=== PATIENT | male | born 1955 | race American Indian/Alaskan Native ===

== ENCOUNTER 2016-12-22 11:04 | Emergency (ER) | payer OTHER ==
[2016-12-22 11:20] VITALS: BP 141/91
--- NOTE | 2016-12-22 13:22 | Emergency Department Report ---
ED Neck Pain/Injury HPI - General Chief Complaint: Neck Pain/Injury Stated Complaint: NECK/SHOULDER PAIN Time Seen by Provider: 12/22/16 12:51 Mode of arrival: Ambulatory Limitations: No Limitations - History of Present Illness Initial Comments: Patient comes into the ER today with complaints of neck pain and upper chest discomfort for the past 2-3 weeks. Patient states that symptoms started with an upper respiratory infection. Patient was started on amoxicillin 500 mg 3 times a day, Singulair, Flonase, Claritin by his doctor. Patient states that he feels like he is no longer congested but he continues to have some episodes of chills, fevers, neck pain. Patient denies any injury. Patient states that the pain he describes feels like a burning sensation and is worse when he raises his arms especially over his head. Patient states that the neck pain it seems to radiate into both upper arms. Patient describes the neck pain as a tight sensation. Patient denies any chest pain or shortness of breath. MD Complaint: neck pain - Related Data Home Medications Medication Instructions Recorded Confirmed Last Taken Allopurinol 100 mg PO DAILY 12/15/13 05/03/16 12/17/13 Insulin Aspart [NovoLOG 100 4 unit SQ QAM 12/15/13 05/03/16 12/17/13 08:00 UNITS/ML VIAL] Linagliptin [Tradjenta] 5 mg PO DAILY 12/15/13 05/03/16 12/17/13 Lisinopril/Hydrochlorothiazide 1 tab PO DAILY 12/15/13 05/03/16 12/18/13 04:00 [Zestoretic 20-12.5 mg] Simvastatin 20 mg PO DAILY 12/15/13 05/03/16 12/17/13 amLODIPine [Norvasc] 5 mg PO DAILY 12/15/13 05/03/16 12/18/13 04:00 glipiZIDE [Glipizide] 10 mg PO BID 12/15/13 05/03/16 12/17/13 Previous Rx's Medication Instructions Recorded Last Taken Type Benzonatate [Tessalon Perles] 100 mg PO Q8HR PRN #30 capsule 05/03/16 Unknown Rx Ibuprofen [Motrin 800 MG tab] 800 mg PO Q8HR PRN #30 tablet 05/03/16 Unknown Rx traMADol [Ultram 50 MG tab] 50 mg PO Q6HR PRN #20 tablet 05/03/16 Unknown Rx Cyclobenzaprine HCl [Flexeril 5 MG 5 mg PO TID PRN #20 tab 12/22/16 Unknown Rx TAB] Levofloxacin [Levaquin TAB] 500 mg PO QDAY #10 tablet 12/22/16 Unknown Rx Naproxen [Naprosyn TAB] 500 mg PO BID #20 tablet 12/22/16 Unknown Rx traMADol [Ultram 50 MG tab] 50 mg PO Q4HR PRN #20 tablet 12/22/16 Unknown Rx Allergies Allergy/AdvReac Type Severity Reaction Status Date / Time amlodipine Allergy Rash Verified 12/22/16 11:24 ED Review of Systems ROS: Stated complaint: NECK/SHOULDER PAIN Other details as noted in HPI Constitutional: chills, fever Eyes: denies: eye pain, eye discharge, vision change ENT: ear pain. denies: throat pain, epistaxis, congestion Respiratory: denies: cough, shortness of breath, SOB with exertion, SOB at rest , wheezing Cardiovascular: denies: chest pain, palpitations, dyspnea on exertion, edema, syncope Endocrine: no symptoms reported Gastrointestinal: denies: abdominal pain, nausea, diarrhea Genitourinary: denies: urgency, dysuria Musculoskeletal: myalgia (bilateral shoulders and neck). denies: back pain, joint swelling, arthralgia Skin: denies: rash, lesions Neurological: headache. denies: weakness, numbness, paresthesias Psychiatric: denies: anxiety, depression Hematological/Lymphatic: denies: easy bleeding, easy bruising ED Past Medical Hx - Past Medical History Previous Medical History?: Yes Hx Hypertension: Yes (hypercholesterolemia) Hx Diabetes: Yes (6YRS TAKES PILL/USING INSULIN ONLY FOR 1 WK ,GOUT MED. CAUSED HYPERGLYCEMIA) Hx GERD: Yes Hx Renal Disease: No - Surgical History Past Surgical History?: Yes Hx Cholecystectomy: Yes - Social History Smoking Status: Never Smoker Substance Use Type: None - Medications Home Medications: Home Medications Medication Instructions Recorded Confirmed Last Taken Type Allopurinol 100 mg PO DAILY 12/15/13 05/03/16 12/17/13 History Insulin Aspart [NovoLOG 100 4 unit SQ QAM 12/15/13 05/03/16 12/17/13 08:00 History UNITS/ML VIAL] Linagliptin [Tradjenta] 5 mg PO DAILY 12/15/13 05/03/16 12/17/13 History Lisinopril/Hydrochlorothiazide 1 tab PO DAILY 12/15/13 05/03/16 12/18/13 04:00 History [Zestoretic 20-12.5 mg] Simvastatin 20 mg PO DAILY 12/15/13 05/03/16 12/17/13 History amLODIPine [Norvasc] 5 mg PO DAILY 12/15/13 05/03/16 12/18/13 04:00 History glipiZIDE [Glipizide] 10 mg PO BID 12/15/13 05/03/16 12/17/13 History Benzonatate [Tessalon Perles] 100 mg PO Q8HR PRN #30 capsule 05/03/16 Unknown Rx Ibuprofen [Motrin 800 MG tab] 800 mg PO Q8HR PRN #30 tablet 05/03/16 Unknown Rx traMADol [Ultram 50 MG tab] 50 mg PO Q6HR PRN #20 tablet 05/03/16 Unknown Rx Cyclobenzaprine HCl [Flexeril 5 MG 5 mg PO TID PRN #20 tab 12/22/16 Unknown Rx TAB] Levofloxacin [Levaquin TAB] 500 mg PO QDAY #10 tablet 12/22/16 Unknown Rx Naproxen [Naprosyn TAB] 500 mg PO BID #20 tablet 12/22/16 Unknown Rx traMADol [Ultram 50 MG tab] 50 mg PO Q4HR PRN #20 tablet 12/22/16 Unknown Rx ED Physical Exam - General Limitations: No Limitations General appearance: alert, in no apparent distress - Head Head exam: Present: atraumatic, normocephalic - Eye Eye exam: Present: normal appearance, PERRL, EOMI. Absent: periorbital swelling , periorbital tenderness Pupils: Present: normal accommodation - ENT ENT exam: Present: normal orophraynx, mucous membranes moist, normal external ear exam, other (mild bilateral air-fluid levels noted behind the TMs, bilateral nasal mucosa redness without congestion) - Neck Neck exam: Present: normal inspection, tenderness (bilateral posterior muscle tenderness with right sided muscle mass swelling consistent with spasm.), other (a carotid bruit noted). Absent: full ROM, lymphadenopathy, thyromegaly - Respiratory Respiratory exam: Present: normal lung sounds bilaterally. Absent: respiratory distress, wheezes, rales, rhonchi, decreased breath sounds - Cardiovascular Cardiovascular Exam: Present: regular rate, normal rhythm. Absent: systolic murmur, diastolic murmur, rubs, gallop - GI/Abdominal GI/Abdominal exam: Present: soft, normal bowel sounds. Absent: tenderness - Rectal Rectal exam: Present: deferred - Extremities Exam Extremities exam: Present: normal inspection, tenderness (bilateral posterior shoulder and parascapular muscle tenderness), normal capillary refill. Absent: full ROM (limited bilateral shoulder abduction secondary to pain in shoulders and neck), pedal edema - Back Exam Back exam: Present: normal inspection, tenderness (tenderness to upper parascapular region with muscle tightness noted). Absent: CVA tenderness (R) - Neurological Exam Neurological exam: Present: alert, oriented X3, CN II-XII intact, normal gait - Psychiatric Psychiatric exam: Present: normal affect, normal mood - Skin Skin exam: Present: warm, dry, intact, normal color. Absent: rash ED Course Vital Signs 12/22/16 11:13 Temperature 98.1 F Pulse Rate 98 H Respiratory 18 Rate Blood Pressure 141/91 O2 Sat by Pulse 100 Oximetry ED Medical Decision Making - Radiology Data Radiology results: report reviewed, image reviewed interpreted by me: X-ray of C-spine reveals multilevel degenerative changes with increased degenerative changes at C5-C6. No acute pathology noted. On chest x-ray concerning for potential left lingular infiltrate - Medical Decision Making Patient is nontoxic and hemodynamically stable. Examination of patient's neck pain is more concerning for muscular etiology with potential nerve impingement based on symptoms. X-ray of neck and x-ray of chest ordered and reviewed results with patient in room. I'll start patient on some muscle relaxers, anti- inflammatories, pain medications as well as antibiotics appropriately. I have encouraged patient follow-up with his primary care doctor to ensure resolution of symptoms. Patient also seen doctors at [facility] for his lower back and I have encouraged him to mention his neck and have them look in his neck as well. The patient is in agreement with treatment plan patient stable for discharge. Critical care attestation.: If time is entered above; I have spent that time in minutes in the direct care of this critically ill patient, excluding procedure time. ED Disposition Clinical Impression: Neck pain, Degenerative disc disease, cervical, Pneumonia Disposition: - TO HOME OR SELFCARE Is pt being admited?: No Does the pt Need Aspirin: No Condition: Good Instructions: Community-acquired Pneumonia (ED), Degenerative Disc Disease (ED) , Muscle Spasm (ED) Prescriptions: Cyclobenzaprine HCl [Flexeril 5 MG TAB] 5 mg PO TID PRN #20 tab PRN Reason: Muscle Spasm Levofloxacin [Levaquin TAB] 500 mg PO QDAY #10 tablet Naproxen [Naprosyn TAB] 500 mg PO BID #20 tablet traMADol [Ultram 50 MG tab] 50 mg PO Q4HR PRN #20 tablet PRN Reason: Pain Referrals: PRIMARY CARE,MD [Primary Care Provider] - 3-5 Days spine doctor, your [Other] - 3-5 Days Time of Disposition: 14:47
--- NOTE | 2016-12-22 14:03 | XRay Report ---
CHEST 2 VIEWS INDICATION: Upper chest pain, fever. COMPARISON: 05/03/2016. FINDINGS: PA and lateral chest radiographs demonstrate normal cardiomediastinal silhouette. Clear lungs. Stable demineralized bones with mild degenerative changes. Probable cholecystectomy clips. CONCLUSION: No acute disease in the chest. Thank you for the opportunity to participate in this patient's care.
--- NOTE | 2016-12-22 14:42 | XRay Report ---
Cervical spine 3 views: History: Neck pain. Findings: Normal height of vertebral bodies. Marked decrease in height of C5-C6. Adjacent articular surfaces sclerotic with peripheral osteophytes suggestive of severe cervical spondylosis. Normal prevertebral soft tissue. No fracture. Impression: Severe spondylosis C5-C6.
== END 2016-12-22 14:56 | disposition home or self-care (01) ==
LOC: ED 11:04
DX: M50.30 Other cervical disc degeneration, unspecified cervical region (principal); J18.9 Pneumonia, unspecified organism; I10 Essential (primary) hypertension; E11.9 Type 2 diabetes mellitus without complications; K21.9 Gastro-esophageal reflux disease without esophagitis; Z79.4 Long term (current) use of insulin; Z88.8 Allergy status to other drugs, medicaments and biological substances
CPT/HCPCS: 71020; 72040; 99283

== ENCOUNTER 2017-01-07 10:13 | Emergency (ER) | payer OTHER ==
[2017-01-07 11:41] LABS: Bilirubin,Urine NEG (Negative); Blood,Urine NEG (Negative); Ketones,Urine NEG (Negative); Leukocyte Esterase,Urine NEG (Negative); Nitrite,Urine NEG (Negative); Urobilinogen,Urine < 2.0 mg/dL (<2.0); WBC,Urine < 1.0 /HPF (0.0-6.0)
[2017-01-07 11:42] LABS: Albumin 3.9 g/dL (3.9-5); Albumin/Globulin Ratio 1.1 %; Bilirubin,Total 0.5 mg/dL (0.1-1.2); Calcium 9.1 mg/dL (8.4-10.2); Chloride 104.3 mmol/L (98-107); Potassium 4.9 mmol/L (3.6-5.0); Total Protein 7.6 g/dL (6.3-8.2)
[2017-01-07 11:44] LABS: Basophils % (Auto) 0.5 % (0.0-1.8); Eosinophils % (Auto) 2.8 % (0.0-4.3); Hematocrit 36.2 % (35.5-45.6); Hemoglobin 11.7 gm/dl (11.8-15.2); Mean Corpuscular HGB Conc 32 % (32-34); Mean Corpuscular Hemoglobin 27 pg (28-32); Mean Corpuscular Volume 82 fl (84-94); Platelet Count 253 K/mm3 (140-440); Red Blood Count 4.42 M/mm3 (3.65-5.03); Red Cell Distribution Width 14.8 % (13.2-15.2)
[2017-01-07] MEDS ORDERED: TYLENOL PO ONE (22:07)
[2017-01-07 22:11] LABS: Creatine Kinase MB 3.1 ng/mL (0.0-4.0)
--- NOTE | 2017-01-07 22:12 | Emergency Department Report ---
HPI - General Chief Complaint: Weakness Time Seen by Provider: 01/07/17 21:49 - HPI HPI: Room 4 The patient is a 61-year-old male presenting with a chief complaint of body aches and cough. Patient states his symptoms began approximately 3 weeks ago with rhinorrhea and nasal congestion and ear pain in addition to a cough productive of brown sputum. Patient states he would see his primary physician 2 weeks ago and was started on amoxicillin and Claritin and nasal spray. He states his symptoms did not improve so he came to the emergency department 12/22 and was started on Levaquin. The patient states he has completed his course of medication but his symptoms have not improved. Patient states one night he became diaphoretic and the following day when he checked, his temperature was 98.7F. The patient states he has a burning discomfort when he takes a deep breath. Patient states he has had a cough productive of yellow sputum and he feels as though he has the flu. Patient complains of pain in the muscles of his neck and shoulders and legs and describes it as burning in nature. Patient denies having chest pain, pressure, tightness or heaviness. Patient denies chest discomfort. Patient denies shortness of breath Location: [see above] Duration: 3 weeks Quality: Burning Severity: Moderate Modifying factors: [see above] Context: [see above] Mode of transportation: The patient drove himself to the emergency department and there are no visitors present ED Past Medical Hx - Past Medical History Hx Hypertension: Yes (hypercholesterolemia) Hx Diabetes: Yes Hx GERD: Yes Additional medical history: GOUT - Surgical History Hx Cholecystectomy: Yes Additional Surgical History: HERNIA REPAIR - Family History Family history: no significant - Social History Smoking Status: Never Smoker Substance Use Type: Prescribed - Medications Home Medications: Home Medications Medication Instructions Recorded Confirmed Last Taken Type Allopurinol 100 mg PO DAILY 12/15/13 05/03/16 12/17/13 History Insulin Aspart [NovoLOG 100 4 unit SQ QAM 12/15/13 05/03/16 12/17/13 08:00 History UNITS/ML VIAL] Linagliptin [Tradjenta] 5 mg PO DAILY 12/15/13 05/03/16 12/17/13 History Lisinopril/Hydrochlorothiazide 1 tab PO DAILY 12/15/13 05/03/16 12/18/13 04:00 History [Zestoretic 20-12.5 mg] Simvastatin 20 mg PO DAILY 12/15/13 05/03/16 12/17/13 History amLODIPine [Norvasc] 5 mg PO DAILY 12/15/13 05/03/16 12/18/13 04:00 History glipiZIDE [Glipizide] 10 mg PO BID 12/15/13 05/03/16 12/17/13 History Benzonatate [Tessalon Perles] 100 mg PO Q8HR PRN #30 capsule 05/03/16 Unknown Rx Ibuprofen [Motrin 800 MG tab] 800 mg PO Q8HR PRN #30 tablet 05/03/16 Unknown Rx traMADol [Ultram 50 MG tab] 50 mg PO Q6HR PRN #20 tablet 05/03/16 Unknown Rx Cyclobenzaprine HCl [Flexeril 5 MG 5 mg PO TID PRN #20 tab 12/22/16 Unknown Rx TAB] Levofloxacin [Levaquin TAB] 500 mg PO QDAY #10 tablet 12/22/16 Unknown Rx Naproxen [Naprosyn TAB] 500 mg PO BID #20 tablet 12/22/16 Unknown Rx traMADol [Ultram 50 MG tab] 50 mg PO Q4HR PRN #20 tablet 12/22/16 Unknown Rx Cyclobenzaprine [Flexeril] 10 mg PO TID PRN #20 tablet 01/07/17 Unknown Rx Docusate Sodium [Colace] 100 mg PO BID #60 capsule 01/07/17 Unknown Rx HYDROcodone/APAP 5-325 [Canon 1 - 2 each PO Q6HR PRN #14 tablet 01/07/17 Unknown Rx 5/325] ED Review of Systems ROS: Stated complaint: MUSCLE PAIN/WEAK/NO ENERGY Other details as noted in HPI Comment: All other systems reviewed and negative Constitutional: diaphoresis, malaise. denies: fever Eyes: denies: eye pain, eye discharge, vision change ENT: ear pain Respiratory: cough. denies: shortness of breath Cardiovascular: denies: chest pain Endocrine: no symptoms reported Gastrointestinal: denies: abdominal pain, nausea, diarrhea Genitourinary: denies: urgency, dysuria Musculoskeletal: myalgia Skin: denies: rash, lesions Neurological: denies: headache, weakness, paresthesias Psychiatric: denies: anxiety, depression Hematological/Lymphatic: denies: easy bleeding, easy bruising Physical Exam - Physical Exam Vital Signs: Vital Signs 01/07/17 10:47 Temperature 98.5 F Pulse Rate 84 Respiratory 18 Rate Blood Pressure 134/88 O2 Sat by Pulse 100 Oximetry Physical Exam: GENERAL: The patient is well-developed well-nourished male lying on the stretcher not appearing to be in acute distress. [] HEENT: Normocephalic. Atraumatic. Extraocular motions are intact. Patient has moist mucous membranes. NECK: Supple. No meningitic signs are noted. Trachea midline CHEST/LUNGS: Clear to auscultation. There is no respiratory distress noted. HEART/CARDIOVASCULAR: Regular. There is no tachycardia. There is no gallop rub or murmur. ABDOMEN: Abdomen is soft, nontender. Patient has normal bowel sounds. There is no abdominal distention. SKIN: There is no rash. There is no edema. There is no diaphoresis. NEURO: The patient is awake, alert, and oriented. The patient is cooperative. The patient has normal speech MUSCULOSKELETAL: There is no evidence of acute injury. ED Course Vital Signs 01/07/17 10:47 Temperature 98.5 F Pulse Rate 84 Respiratory 18 Rate Blood Pressure 134/88 O2 Sat by Pulse 100 Oximetry ED Medical Decision Making - Lab Data Result diagrams: 01/07/17 11:09 01/07/17 11:09 Laboratory Tests 01/07/17 01/07/17 01/07/17 11:09 11:09 11:09 WBC 8.0 RBC 4.42 Hgb 11.7 L Hct 36.2 MCV 82 L MCH 27 L MCHC 32 RDW 14.8 Plt Count 253 Lymph % (Auto) 27.0 Cataño % (Auto) 8.4 H Eos % (Auto) 2.8 Baso % (Auto) 0.5 Lymph # 2.2 Cataño # 0.7 Eos # 0.2 Baso # 0.0 Seg Neutrophils % 61.3 Seg Neutrophils # 4.9 Sodium 140 Potassium 4.9 Chloride 104.3 Carbon Dioxide 26 Anion Gap 15 BUN 27 H Creatinine 1.5 Estimated GFR 57 BUN/Creatinine Ratio 18.00 Glucose 147 H Calcium 9.1 Total Bilirubin 0.50 AST 20 ALT 16 Alkaline Phosphatase 84 Total Creatine Kinase 182 H CK-MB (CK-2) 3.1 Troponin T 0.020 Total Protein 7.6 Albumin 3.9 Albumin/Globulin Ratio 1.1 TSH Free T4 Urine Color Urine Turbidity Urine pH Ur Specific Sandoval Urine Protein Urine Glucose (UA) Urine Ketones Urine Blood Urine Nitrite Urine Bilirubin Urine Urobilinogen Ur Leukocyte Esterase Urine WBC (Auto) Urine RBC (Auto) U Epithel Cells (Auto) 01/07/17 01/07/17 11:09 11:10 WBC RBC Hgb Hct MCV MCH MCHC RDW Plt Count Lymph % (Auto) Cataño % (Auto) Eos % (Auto) Baso % (Auto) Lymph # Cataño # Eos # Baso # Seg Neutrophils % Seg Neutrophils # Sodium Potassium Chloride Carbon Dioxide Anion Gap BUN Creatinine Estimated GFR BUN/Creatinine Ratio Glucose Calcium Total Bilirubin AST ALT Alkaline Phosphatase Total Creatine Kinase CK-MB (CK-2) Troponin T Total Protein Albumin Albumin/Globulin Ratio TSH 1.290 Free T4 1.15 Urine Color Yellow Urine Turbidity Clear Urine pH 7.0 Ur Specific Sandoval 1.016 Urine Protein 30 mg/dl Urine Glucose (UA) 150 Urine Ketones Neg Urine Blood Neg Urine Nitrite Neg Urine Bilirubin Neg Urine Urobilinogen < 2.0 Ur Leukocyte Esterase Neg Urine WBC (Auto) < 1.0 Urine RBC (Auto) 2.0 U Epithel Cells (Auto) < 1.0 Influenza negative - EKG Data -: EKG Interpreted by Me EKG shows normal: sinus rhythm Rate: normal - EKG Data When compared to previous EKG there are: no significant change Interpretation: unchanged when compared t (05/03/2016) - Radiology Data Radiology results: report reviewed (CT chest), image reviewed (CT chest) CT chest (read by radiologist)-no significant pulmonary abnormality. - Differential Diagnosis influenza, pneumonia, pleurisy, PE, dissection, rhabdomyolysis Critical care attestation.: If time is entered above; I have spent that time in minutes in the direct care of this critically ill patient, excluding procedure time. ED Disposition Clinical Impression: Proteinuria, Myalgia, Cough Disposition: - TO HOME OR SELFCARE Is pt being admited?: No Does the pt Need Aspirin: No Condition: Stable Instructions: Musculoskeletal Pain (ED) Additional Instructions: Return to the emergency department immediately should you develop worsening symptoms, fever, inability to tolerate food or liquid or any other concerns. Prescriptions: Cyclobenzaprine [Flexeril] 10 mg PO TID PRN #20 tablet PRN Reason: Muscle Spasm Docusate Sodium [Colace] 100 mg PO BID #60 capsule HYDROcodone/APAP 5-325 [Canon 5/325] 1 - 2 each PO Q6HR PRN #14 tablet PRN Reason: Pain Referrals: ELIF TRINH MD [Staff Physician] - 3-5 Days (Dr. Trinh is a print shop assistant. Please follow up with him for further evaluation of the protein in your urine) AYLA MELTON MD [Primary Care Provider] - 3-5 Days WAYNE ATKINSON MD [Staff Physician] - 3-5 Days (Dr. Atkinson is an orthopedic surgeon. Please follow with him for further evaluation of your neck and shoulder pain) HUGH ONEILL MD [Staff Physician] - 3-5 Days (Dr. Oneill is a bad credit collector. Please follow up with him for further evaluation) Time of Disposition: 23:29
--- NOTE | 2017-01-07 23:15 | Cat Scan Report ---
FINAL REPORT EXAM: CT ANGIO CHEST HISTORY: pleurisy, cough TECHNIQUE: CT imaging obtained through the chest following intravenous administration of contrast. Transaxial, Coronal and sagittal reformats with maximal intensity projections are provided. PRIORS: None. FINDINGS: Mediastinum is unremarkable. Normal caliber main pulmonary artery. No central or segmental pulmonary embolism. Coronary artery disease is present. Thoracic aorta is normal in course and caliber. No pneumothorax, effusion or focal airspace disease. Basilar atelectasis/scarring. The central airways are patent. No bronchiectasis. Imaged portion of the upper abdomen is remarkable for cholecystectomy and right and left renal cyst measuring 16 and 17 millimeters, respectively. The hilum of the right kidney is rotated anteriorly. Retro aortic left renal vein. The superficial soft tissues are unremarkable. No acute bony abnormality or worrisome osseous lesions identified. IMPRESSION: No significant pulmonary abnormality. Coronary artery disease.
[2017-01-07 23:32] VITALS: BP 143/101
== END 2017-01-07 23:30 | disposition home or self-care (01) ==
LOC: ED 10:13
DX: M79.1 Myalgia (principal); R05 Cough; R80.9 Proteinuria, unspecified; E78.00 Pure hypercholesterolemia, unspecified; K21.9 Gastro-esophageal reflux disease without esophagitis; E11.9 Type 2 diabetes mellitus without complications; M10.9 Gout, unspecified; Z79.4 Long term (current) use of insulin; Z88.8 Allergy status to other drugs, medicaments and biological substances
CPT/HCPCS: 36415; 71275; 80053; 81001; 82550; 82553; 84439; 84443; 84484; 85025; 87400; 93005; 93010; 99284; Q9967